=== PATIENT | female | born 1990 | race Caucasian/White ===

== ENCOUNTER 2022-08-29 14:34 | Emergency (ER) | payer SELFPAY ==
[~2022-08-29] VITALS: Ht 177.8 cm; Wt 72.1 kg
[2022-08-29 14:52] VITALS: BP 97/44
--- NOTE | 2022-08-29 17:40 | NUR ---
PATIENT LEFT WITHOUT BEING SEEN BY DR. BELTRÁN. NO FURTHER CARE PROVIDED FOR PATIENT.
== END 2022-08-29 16:18 | disposition left against medical advice (07) ==
LOC: MED 14:34
DX: L02.31 Cutaneous abscess of buttock (principal); Z53.21 Procedure and treatment not carried out due to patient leaving prior to being seen by health care provider